=== PATIENT | male | born 1960 | race Caucasian/White ===

== ENCOUNTER → 2017-09-26 | Outpatient (CLI) | payer MEDICARE | LOC: M RAD 15:06 | DX: S43.101A Unspecified dislocation of right acromioclavicular joint, initial encounter (principal); W18.30XA Fall on same level, unspecified, initial encounter; Y92.009 Unspecified place in unspecified non-institutional (private) residence as the place of occurrence of the external cause | CPT/HCPCS: 73221 ==

== ENCOUNTER 2017-11-01 05:33 | Day surgery (SDC) | payer MEDICARE ==
[2017-11-01] MEDS ORDERED: dexameTHASONE 10 MG/1 ML VIAL PRES.FREE (J1100) (05:34)
[2017-11-01] MEDS ORDERED: ROPIvacaine 0.5% 30 ML INJECTION (J2795 PER 1MG) (05:34)
[2017-11-01] MEDS ORDERED: LIDOCAINE 1% MDV 20ML VIAL (05:34)
[2017-11-01] MEDS ORDERED: ePHEDrine SULFATE 25 MG/5 ML(5MG/ML) SYRINGE (05:34)
[2017-11-01] MEDS ORDERED: LR 1,000 ML IV ×3 (05:45→12:00)
[2017-11-01] MEDS ORDERED: MIDAZOLAM INJ 2 MG/2 ML VIAL (J2250) As Ordered (06:57)
[2017-11-01] MEDS ORDERED: fentaNYL 100 MCG/2 ML INJECTION (J3010) As Ordered ×2 (06:57→07:09)
[2017-11-01 07:06] LABS: BEDSIDE GLUCOSE 137 MG/DL (70-105)
[2017-11-01] MEDS ORDERED: PROPOFOL 200 MG/20 ML VIAL As Ordered ×3 (07:08→11:03)
[2017-11-01] MEDS ORDERED: ROCURONIUM BROMIDE 50 MG/5 ML VIAL As Ordered ×2 (07:08→09:17)
[2017-11-01] MEDS ORDERED: LIDOCAINE 2% INJ 100 MG/5 ML SDV (FOR ANES.) As Ordered (07:08)
[2017-11-01] MEDS: MIDAZOLAM INJ 2 MG/2 ML VIAL (J2250) IV (07:20)
[2017-11-01] MEDS: fentaNYL 100 MCG/2 ML INJECTION (J3010) IV (07:20)
[2017-11-01] MEDS ORDERED: PHENYLephrine HCL 500 MCG/5 ML (100MCG/ML) SYRINGE (J2370) As Ordered ×2 (07:58→08:16)
[2017-11-01] MEDS ORDERED: METOCLOPRAMIDE INJ 10MG/2ML VIAL (J2765) As Ordered (07:58)
[2017-11-01] MEDS ORDERED: ePHEDrine SULFATE 25 MG/5 ML(5MG/ML) SYRINGE As Ordered ×2 (07:59→08:24)
[2017-11-01] MEDS ORDERED: NEOSTIGMINE 10 MG/10 ML VIAL (J2710) As Ordered ×2 (08:22→08:25)
[2017-11-01] MEDS ORDERED: ONDANSETRON 4MG/2ML VIAL (J2405) As Ordered (08:23)
[2017-11-01] MEDS ORDERED: GLYCOPYRROLATE INJ 0.2 MG/ML 2 ML VIAL As Ordered (08:23)
[2017-11-01] MEDS ORDERED: PHENYLEPHRINE INJ 10MG/ML VIAL (J2370) As Ordered ×3 (08:37→08:44)
[2017-11-01] MEDS ORDERED: HumaLOG INSULIN (NovoLOG) PER UNIT As Ordered (11:43)
[2017-11-01 11:52] LABS: BEDSIDE GLUCOSE 323 MG/DL (70-105)
[2017-11-01] MEDS ORDERED: ONDANSETRON 4MG/2ML VIAL (J2405) IV (12:00)
[2017-11-01] MEDS ORDERED: fentaNYL 100 MCG/2 ML INJECTION (J3010) IV (12:00)
[2017-11-01] MEDS ORDERED: HYDROmorphone HCL 1 MG/ML SYRINGE (J1170) IV (12:00)
[2017-11-01] MEDS ORDERED: PERCOCET 5MG/325MG TAB PO (12:00)
[2017-11-01] MEDS: HumaLOG INSULIN (NovoLOG) PER UNIT SC ×3 (12:34→14:12)
[2017-11-01] MEDS ORDERED: LR 500 ML IV (12:45)
[2017-11-01 13:32] LABS: BEDSIDE GLUCOSE 362 MG/DL (70-105)
[2017-11-01 14:13] LABS: BEDSIDE GLUCOSE 268 MG/DL (70-105)
[2017-11-01 15:38] LABS: BEDSIDE GLUCOSE 199 MG/DL (70-105)
== END 2017-11-01 15:44 | disposition home or self-care (01) ==
LOC: M SDC 05:33
DX: S43.101A Unspecified dislocation of right acromioclavicular joint, initial encounter (principal); M19.011 Primary osteoarthritis, right shoulder; I10 Essential (primary) hypertension; E10.21 Type 1 diabetes mellitus with diabetic nephropathy; Z79.4 Long term (current) use of insulin; J44.9 Chronic obstructive pulmonary disease, unspecified; F32.9 Major depressive disorder, single episode, unspecified; Z79.899 Other long term (current) drug therapy; Z87.891 Personal history of nicotine dependence; Y93.9 Activity, unspecified; Y92.9 Unspecified place or not applicable
CPT/HCPCS: 23552

== ENCOUNTER → 2020-04-19 | Outpatient (CLI) | payer MEDICARE ==
[~2020-04-19] MED LIST: FLUO10TA30 PO; FLUO20CA20 PO; GABA-843 PO; INSUHUMDS SC; INSULANT SC; LISI10TA4 PO; METO1TAB32 PO; ROSU20TA5 PO; TRAM50TA2 PO; medical marijuana
== END ==
LOC: M LABSMTC 11:15
PROVIDERS: ATTEND Anesthesiology
DX: Z01.812 Encounter for preprocedural laboratory examination (principal); Z20.828 Contact with and (suspected) exposure to other viral communicable diseases
CPT/HCPCS: C9803; U0003

== ENCOUNTER 2020-04-24 11:49 | Day surgery (SDC) | payer MEDICARE ==
[~2020-04-24] VITALS: Ht 175.3 cm; Wt 82.5 kg
[~2020-04-24 11:49] MED LIST changes: +LIDOCAINE 2% 100MG/5ML SDV (FOR ANES.) As Ordered ONE; +NS 1,000 ML IV ONE; +propofoL 200 MG/20 ML VIAL As Ordered ONE
--- NOTE | 2020-04-24 13:34 | ROOR ---
Patient Name: Ceasar Steen Procedure Date: 04/24/2020 1:19 PM Date of : 1960 Age: 59 Room: [facility] Gender: Male Note Status: Finalized Procedure: Upper GI endoscopy Indications: Epigastric abdominal pain, Nausea Providers: Tereso KING MD Referring MD: Ksenia ZAMAN MD Requesting Provider: Medicines: Monitored Anesthesia Care Complications: No immediate complications. Procedure: Pre-Anesthesia Assessment: - The heart rate, respiratory rate, oxygen saturations, blood pressure, adequacy of pulmonary ventilation, and response to care were monitored throughout the procedure. The Endoscope was introduced through the mouth, and advanced to the second part of duodenum. The upper GI endoscopy was accomplished without difficulty. The patient tolerated the procedure well. Findings: The examined esophagus was normal. Scattered mild inflammation characterized by erythema was found in the gastric body and in the gastric antrum. Biopsies were taken with a cold forceps for histology. The exam of the stomach was otherwise normal. The examined duodenum was normal. Impression: - Normal esophagus. - Mild scattered gastritis. Biopsied. - Normal examined duodenum. Recommendation: - Continue present medications. - Telephone endoscopist for pathology results in 2 weeks. - Observe patient's clinical course. - Gastroparesis diet: - Eat smaller, more frequent meals throughout the day. - Low fat diet. - Liquid/soft foods are tolerated better than solid foods. - Low fiber/well cooked vegetables are tolerated better than high fiber/fibrous foods/raw vegetables. - Avoid medications that inhibit gastric/intestinal motility such as narcotic medications. Tereso King MD Tereso KING MD 04/24/2020 1:33:28 PM Electronically signed by Tereso KING MD Number of Addenda: 0 Note Initiated On: 04/24/2020 1:19 PM Estimated Blood Loss: Estimated blood loss: none.
--- NOTE | 2020-04-24 13:48 | ROOR ---
Patient Name: Ceasar Steen Procedure Date: 04/24/2020 1:20 PM Date of : 1960 Age: 59 Room: [facility] Gender: Male Note Status: Finalized Procedure: Colonoscopy Indications: Screening for colorectal malignant neoplasm Providers: Tereso KNIG MD Referring MD: Ksenia ZAMAN MD Requesting Provider: Medicines: Monitored Anesthesia Care Complications: No immediate complications. Procedure: Pre-Anesthesia Assessment: - The heart rate, respiratory rate, oxygen saturations, blood pressure, adequacy of pulmonary ventilation, and response to care were monitored throughout the procedure. The Colonoscope was introduced through the anus and advanced to 5 cm into the ileum. The colonoscopy was performed without difficulty. The patient tolerated the procedure well. The quality of the bowel preparation was good. Findings: The perianal and digital rectal examinations were normal. Small Internal Hemorrhoids. The entire examined colon appeared normal on direct and retroflexion views. Impression: - Small Internal Hemorrhoids. - The entire examined colon is normal on direct and retroflexion views. - The examined portion of the ileum was normal. - No specimens collected. Recommendation: - Repeat colonoscopy in 10 years. - Return to referring physician as previously scheduled. Tereso King MD Tereso KING MD 04/24/2020 1:48:17 PM Electronically signed by Tereso KING MD Number of Addenda: 0 Note Initiated On: 04/24/2020 1:20 PM Estimated Blood Loss: Estimated blood loss: none.
[2020-04-24 14:20] VITALS: BP 109/59
== END 2020-04-24 14:28 | disposition home or self-care (01) ==
LOC: M OPP 11:49
PROVIDERS: ATTEND Internal Medicine Gastroenterology
DX: R19.4 Change in bowel habit (principal); K64.8 Other hemorrhoids; K29.70 Gastritis, unspecified, without bleeding; R13.13 Dysphagia, pharyngeal phase; R11.0 Nausea; K21.9 Gastro-esophageal reflux disease without esophagitis; E11.9 Type 2 diabetes mellitus without complications; Z79.4 Long term (current) use of insulin; Z79.899 Other long term (current) drug therapy

== ENCOUNTER → 2021-08-06 | Outpatient (CLI) | payer MEDICARE ==
[~2021-08-06] MED LIST changes: +FLUO-96 PO; -FLUO20CA20 PO; +GABA-282 PO; -GABA-843 PO; -LIDOCAINE 2% 100MG/5ML SDV (FOR ANES.) As Ordered ONE; +LISI10TA22 PO; -LISI10TA4 PO; -NS 1,000 ML IV ONE; -propofoL 200 MG/20 ML VIAL As Ordered ONE
== END ==
LOC: M RAD 11:08
PROVIDERS: ATTEND Internal Medicine
DX: N40.1 Benign prostatic hyperplasia with lower urinary tract symptoms (principal)

== ENCOUNTER 2021-09-11 12:52 | Emergency (ER) | payer MEDICARE ==
[2021-09-11] MEDS: DEXTROSE 50% 50 ML SYRINGE IV STA ×2 (13:45→13:47)
[2021-09-11] MEDS ORDERED: DEXTROSE 50% 50 ML SYRINGE As Ordered ONE (13:45)
[2021-09-11 14:00] VITALS: BP 133/72
[2021-09-11] MEDS ORDERED: MORPHINE 4 MG/ML 1ML VIAL/SYRINGE (J2270) IV ONE (14:05)
== END 2021-09-11 15:00 | disposition home or self-care (01) ==
LOC: EDBD 12:52 → EDSEX 12:52 → M ED 12:52
DX: S82.042A Displaced comminuted fracture of left patella, initial encounter for closed fracture (principal); W00.0XXA Fall on same level due to ice and snow, initial encounter; Y92.89 Other specified places as the place of occurrence of the external cause; I10 Essential (primary) hypertension; E11.9 Type 2 diabetes mellitus without complications; F33.9 Major depressive disorder, recurrent, unspecified; Z79.899 Other long term (current) drug therapy; Z79.4 Long term (current) use of insulin

== ENCOUNTER → 2021-09-15 | Outpatient (CLI) | payer MEDICARE | LOC: M RAD 14:30 | PROVIDERS: ATTEND Orthopaedic Surgery Hand Surgery | DX: S82.032A Displaced transverse fracture of left patella, initial encounter for closed fracture (principal); X58.XXXA Exposure to other specified factors, initial encounter; Y92.89 Other specified places as the place of occurrence of the external cause; Y93.9 Activity, unspecified; Y99.9 Unspecified external cause status ==

== ENCOUNTER → 2021-09-23 | Outpatient (CLI) | payer MEDICARE ==
[~2021-09-23] MED LIST changes: +ASPI81CH8 PO; +FURO40TA2 PO; +GABA-1171 PO; +HYDR-3363 PO; +METO25TA4 PO
== END ==
LOC: M LABSMTC 09:27
PROVIDERS: ATTEND Anesthesiology
DX: Z01.812 Encounter for preprocedural laboratory examination (principal); Z20.822 Contact with and (suspected) exposure to COVID-19

== ENCOUNTER 2021-09-25 12:27 | Inpatient (IN) | payer MEDICARE ==
[~2021-09-25 12:27] MED LIST changes: -ASPI81CH8 PO; -FURO40TA2 PO; -GABA-1171 PO; -HYDR-3363 PO; -METO25TA4 PO
[2021-09-25 14:25] VITALS: BP 113/68
[2021-09-25 14:31] LABS: HEMATOCRIT 32.7 % (42.0-52.0); HEMOGLOBIN 11.1 g/dl (13.5-17.5); MEAN CORPUSCULAR HEMOGLOBIN 31.2 pg (27.0-33.0); MEAN CORPUSCULAR HGB CONC 33.9 g/dl (32.0-36.5); MEAN CORPUSCULAR VOLUME 91.9 fl (80.0-96.0); PLATELET COUNT, AUTOMATED 392 10^3/uL (150-450); RED BLOOD COUNT 3.56 10^6/uL (4.30-6.10); WHITE BLOOD COUNT 7.6 10^3/uL (4.0-10.0)
[2021-09-25 14:42] LABS: INR 0.95; PARTIAL THROMBOPLASTIN TIME 27.6 SECONDS (25.9-37.0); PROTHROMBIN TIME 13.1 SECONDS (12.7-14.5)
[2021-09-25] MEDS ORDERED: DEXTROSE 50% 50 ML SYRINGE IV PRN (14:55)
[2021-09-25] MEDS ORDERED: GLUCAGON INJ 1MG VIAL SC PRN (14:55)
[2021-09-25] MEDS ORDERED: GLUCOSE 4GM CHEW TABLET PO PRN (14:55)
[2021-09-25 14:56] LABS: ALBUMIN 3.2 GM/DL (3.2-5.2); ALT/SGPT 17 U/L (12-78); BILIRUBIN,TOTAL 0.8 MG/DL (0.2-1.0); BLOOD UREA NITROGEN 15 MG/DL (7-18); CARBON DIOXIDE LEVEL 29 MEQ/L (21-32); CHLORIDE LEVEL 104 MEQ/L (98-107); GLOMERULAR FILTRATION RATE > 60.0 (>49); GLUCOSE, FASTING 122 MG/DL (70-100); SODIUM LEVEL 136 MEQ/L (136-145)
[2021-09-25] MEDS ORDERED: GABA-1171 PO (16:25)
[2021-09-25] MEDS ORDERED: METO25TA4 PO (16:25)
[2021-09-25] MEDS ORDERED: HOME MED LIST COMPLETE! XX SCH (16:30)
[2021-09-25] MEDS: HumaLOG INSULIN (NovoLOG) PER UNIT SC SCH (18:41)
[2021-09-25] MEDS: METOPROLOL TART 25 MG TABLET PO SCH (20:04)
[2021-09-25] MEDS: FLUoxetine 20 MG CAP PO SCH (20:04)
[2021-09-25] MEDS: GABAPENTIN 100 MG CAP PO SCH (20:04)
[2021-09-25] MEDS: ROSUVASTATIN 10 MG TAB (CRESTOR) PO SCH (20:04)
[2021-09-25] MEDS ORDERED: HumaLOG INSULIN (NovoLOG) PER UNIT SC SCH (21:00)
[2021-09-25] MEDS ORDERED: GABAPENTIN 300 MG CAP PO SCH (21:00)
[2021-09-25] MEDS ORDERED: LEVEMIR (INSULIN DETEMIR) 1 UNITS/0.01ML SC SCH (21:00)
[2021-09-25 22:00] VITALS: BP 117/62
[2021-09-26] VITALS (9 sets, daily range): BP systolic 107–141; BP diastolic 57–70
[2021-09-26] MEDS ORDERED: HumaLOG INSULIN (NovoLOG) PER UNIT SC ONE (01:45)
[2021-09-26] MEDS: NS 1,000 ML IV ONE ×2 (02:06→02:22)
[2021-09-26 06:17] LABS: HEMATOCRIT 30.9 % (42.0-52.0); HEMOGLOBIN 10.3 g/dl (13.5-17.5); MEAN CORPUSCULAR HEMOGLOBIN 31.6 pg (27.0-33.0); MEAN CORPUSCULAR HGB CONC 33.3 g/dl (32.0-36.5); MEAN CORPUSCULAR VOLUME 94.8 fl (80.0-96.0); PLATELET COUNT, AUTOMATED 360 10^3/uL (150-450); RED BLOOD COUNT 3.26 10^6/uL (4.30-6.10); WHITE BLOOD COUNT 6.9 10^3/uL (4.0-10.0)
[2021-09-26 06:44] LABS: BLOOD UREA NITROGEN 13 MG/DL (7-18); CALCIUM LEVEL 8.9 MG/DL (8.8-10.2); CARBON DIOXIDE LEVEL 30 MEQ/L (21-32); CHLORIDE LEVEL 110 MEQ/L (98-107); CREATININE FOR GFR 0.82 MG/DL (0.70-1.30); GLOMERULAR FILTRATION RATE > 60.0 (>49); GLUCOSE, FASTING 80 MG/DL (70-100); POTASSIUM SERUM 4.1 MEQ/L (3.5-5.1); SODIUM LEVEL 143 MEQ/L (136-145)
[2021-09-26] MEDS: HumaLOG INSULIN (NovoLOG) PER UNIT SC SCH ×3 (07:30→20:28)
[2021-09-26] MEDS ORDERED: D5W/0.45% SODIUM CHLORIDE 1,000 ML IV SCH (08:00)
[2021-09-26] MEDS ORDERED: FLUoxetine 20 MG CAP PO SCH (09:00)
[2021-09-26] MEDS ORDERED: ceFAZolin 2 GM/D5W 50 ML IV BAG (J0690 PER 500MG) As Ordered ONE ×2 (10:27→15:24)
[2021-09-26] MEDS ORDERED: BUPIVACAINE HCL 0.25% 30ML VIAL As Ordered ONE (10:28)
[2021-09-26] MEDS ORDERED: dexameTHASONE 10MG/1ML VIAL PRES.FREE (J1100 PER 1MG) ONE (11:01)
[2021-09-26] MEDS ORDERED: LIDOCAINE 1% MDV 20ML VIAL ONE (11:01)
[2021-09-26] MEDS ORDERED: ROPIvacaine 0.5% 30ML INJECTION (J2795 PER 1MG) As Ordered ONE (11:10)
[2021-09-26] MEDS ORDERED: NS 1,000 ML IV SCH (11:30)
[2021-09-26] MEDS ORDERED: TRANEXAMIC ACID 100 MG/ML 10ML VIAL As Ordered ONE ×2 (11:37→12:06)
[2021-09-26] MEDS ORDERED: HumaLOG INSULIN (NovoLOG) PER UNIT As Ordered ONE (11:39)
[2021-09-26] MEDS ORDERED: DESFLURANE 240 ML INHALANT As Ordered ONE ×2 (11:59→14:21)
[2021-09-26] MEDS ORDERED: SEVOFLURANE INHAL SOLN 250 ML BTL As Ordered ONE (11:59)
[2021-09-26] MEDS ORDERED: fentaNYL 250 MCG/5 ML INJECTION As Ordered ONE (11:59)
[2021-09-26] MEDS ORDERED: MIDAZOLAM INJ 2MG/2ML VIAL (J2250 PER 1MG) As Ordered ONE (11:59)
[2021-09-26] MEDS ORDERED: ONDANSETRON 4MG/2ML VIAL As Ordered ONE (11:59)
[2021-09-26] MEDS ORDERED: ACETAMINOPHEN 1000MG 100ML IV BTL (OFIRMEV) (J0131 PER 10MG) As Ordered ONE (11:59)
[2021-09-26] MEDS ORDERED: METOCLOPRAMIDE INJ 10MG/2ML VIAL (J2765 PER 1) As Ordered ONE (11:59)
[2021-09-26] MEDS ORDERED: SUGAMMADEX SODIUM 500 MG/5 ML VIAL (BRIDION) As Ordered ONE (11:59)
[2021-09-26] MEDS ORDERED: ROCURONIUM BROMIDE 50 MG/5 ML VIAL As Ordered ONE (11:59)
[2021-09-26] MEDS ORDERED: LIDOCAINE 2% 100MG/5ML SDV (FOR ANES.) As Ordered ONE (11:59)
[2021-09-26] MEDS ORDERED: propofoL 200 MG/20 ML VIAL As Ordered ONE (11:59)
[2021-09-26] MEDS ORDERED: dexameTHASONE 4 MG/ML 1ML VIAL (J1100 PER 1MG) As Ordered ONE (11:59)
[2021-09-26] MEDS ORDERED: HumaLOG INSULIN (NovoLOG) PER UNIT SC SCH (12:00)
[2021-09-26] MEDS ORDERED: ALBUTEROL 6.7GM INHALER **FOR ANES. CART/OMNICELL ONLY As Ordered ONE (12:00)
[2021-09-26] MEDS ORDERED: ePHEDrine SULFATE 25 MG/5 ML(5MG/ML) SYRINGE As Ordered ONE ×2 (12:15→15:00)
[2021-09-26] MEDS ORDERED: fentaNYL 100 MCG/2 ML INJECTION As Ordered ONE (14:45)
[2021-09-26] MEDS ORDERED: PHENYLephrine 500MCG 5ML (100MCG/ML) SYRINGE As Ordered ONE (15:03)
[2021-09-26] MEDS ORDERED: VANCOMYCIN 500MG/10ML VIAL As Ordered ONE (15:20)
[2021-09-26] MEDS ORDERED: fentaNYL 100 MCG/2 ML INJECTION IV PRN (16:55)
[2021-09-26] MEDS ORDERED: LR 1,000 ML IV SCH (16:55)
[2021-09-26] MEDS ORDERED: ONDANSETRON 4MG/2ML VIAL IV PRN (16:55)
[2021-09-26] MEDS ORDERED: oxyCODONE 5MG TAB PO PRN (16:55)
[2021-09-26] MEDS: LR 1,000 ML IV SCH (18:01)
[2021-09-26] MEDS: GABAPENTIN 100 MG CAP PO SCH (20:16)
[2021-09-26] MEDS: FLUoxetine 20 MG CAP PO SCH (20:16)
[2021-09-26] MEDS: ROSUVASTATIN 10 MG TAB (CRESTOR) PO SCH (20:16)
[2021-09-26] MEDS: METOPROLOL TART 25 MG TABLET PO SCH (20:17)
[2021-09-26] MEDS: LEVEMIR (INSULIN DETEMIR) 1 UNITS/0.01ML SC SCH (20:21)
[2021-09-26] MEDS ORDERED: GABAPENTIN 100 MG CAP PO ONE (22:15)
[2021-09-27 02:00] VITALS: BP 128/71
[2021-09-27] MEDS ORDERED: HumaLOG INSULIN (NovoLOG) PER UNIT SC ONE ×4 (04:45→20:25)
[2021-09-27 06:00] VITALS: BP 128/69
[2021-09-27 06:52] LABS: HEMATOCRIT 27.5 % (42.0-52.0); HEMOGLOBIN 9.3 g/dl (13.5-17.5); MEAN CORPUSCULAR HEMOGLOBIN 31.4 pg (27.0-33.0); MEAN CORPUSCULAR HGB CONC 33.8 g/dl (32.0-36.5); MEAN CORPUSCULAR VOLUME 92.9 fl (80.0-96.0); PLATELET COUNT, AUTOMATED 360 10^3/uL (150-450); RED BLOOD COUNT 2.96 10^6/uL (4.30-6.10); WHITE BLOOD COUNT 16.2 10^3/uL (4.0-10.0)
[2021-09-27 07:22] LABS: BLOOD UREA NITROGEN 13 MG/DL (7-18); CALCIUM LEVEL 8.9 MG/DL (8.8-10.2); CARBON DIOXIDE LEVEL 28 MEQ/L (21-32); CHLORIDE LEVEL 106 MEQ/L (98-107); CREATININE FOR GFR 0.99 MG/DL (0.70-1.30); GLOMERULAR FILTRATION RATE > 60.0 (>49); GLUCOSE, FASTING 302 MG/DL (70-100); MAGNESIUM LEVEL 1.8 MG/DL (1.8-2.4); POTASSIUM SERUM 4.6 MEQ/L (3.5-5.1); SODIUM LEVEL 139 MEQ/L (136-145)
[2021-09-27] MEDS: ASPIRIN 81 MG CHEW TABLET PO SCH (08:12)
[2021-09-27] MEDS: HumaLOG INSULIN (NovoLOG) PER UNIT SC SCH ×4 (08:13→20:42)
[2021-09-27] MEDS: LEVEMIR (INSULIN DETEMIR) 1 UNITS/0.01ML SC SCH ×2 (08:15→20:54)
[2021-09-27 10:00] VITALS: BP 127/62
[2021-09-27] MEDS ORDERED: K-PHOS ORIGINAL (POT.ACID PHOSPHATE) 500MG TAB PO ONE (11:50)
[2021-09-27] MEDS: LR 1,000 ML IV SCH (12:55)
[2021-09-27 13:00] LABS: HEMOGLOBIN A1c 7.7 %
[2021-09-27 14:00] VITALS: BP 159/73
[2021-09-27 18:00] VITALS: BP_SYST 154; BP_DIAS 0; BP_DIAS 70
[2021-09-27] MEDS ORDERED: ONDANSETRON 4 MG TAB PO ONE (18:30)
[2021-09-27] MEDS ORDERED: ONDANSETRON 4MG/2ML VIAL IV PRN (19:55)
[2021-09-27 20:04] LABS: APPEARANCE, URINE CLEAR (CLEAR); BACTERIA, URINE AUTO NEGATIVE (NEGATIVE); BILIRUBIN, URINE AUTO NEGATIVE (NEGATIVE); BLOOD, URINE BLOOD NEGATIVE (NEGATIVE); COLOR, URINE YELLOW (YELLOW); GLUCOSE, URINE (UA) AUTO NEGATIVE (NEGATIVE); KETONE, URINE AUTO 1+ mg/dL (NEGATIVE); LEUKOCYTE ESTERASE, URINE AUTO NEGATIVE (NEGATIVE); MUCUS, URINE SMALL (NEGATIVE); NITRITE, URINE AUTO NEGATIVE (NEGATIVE); PROTEIN, URINE AUTO NEGATIVE (NEGATIVE); RBC, URINE AUTO 1 /HPF (0-3); SPECIFIC GRAVITY URINE AUTO 1.013 (1.002-1.035); SQUAMOUS EPITHELIAL CELL UR AU 0 /HPF (0-6); WBC, URINE AUTO 0 /HPF (0-3)
[2021-09-27] MEDS: HEPARIN SOD (PORCINE) 5000UNITS/ML 1ML VIAL/SYRINGE SQ SCH (20:54)
[2021-09-27] MEDS: ROSUVASTATIN 10 MG TAB (CRESTOR) PO SCH (21:00)
[2021-09-27] MEDS ORDERED: lisinopriL 5 MG TAB PO SCH (21:00)
[2021-09-27] MEDS ORDERED: LEVEMIR (INSULIN DETEMIR) 1 UNITS/0.01ML SC SCH (21:00)
[2021-09-27] MEDS: METOPROLOL TART 25 MG TABLET PO SCH (21:00)
[2021-09-27] MEDS: FLUoxetine 20 MG CAP PO SCH (21:00)
[2021-09-27] MEDS: GABAPENTIN 100 MG CAP PO SCH (21:00)
[2021-09-27 22:00] VITALS: BP 125/59
[2021-09-27] MEDS ORDERED: PROMETHAZINE INJ 25 MG/ML VIAL (J2550) IV PRN (23:55)
[2021-09-28] MEDS: LR 1,000 ML IV SCH ×2 (00:24→11:39)
[2021-09-28] MEDS ORDERED: HumaLOG INSULIN (NovoLOG) PER UNIT SC ONE (00:45)
[2021-09-28] MEDS: HEPARIN SOD (PORCINE) 5000UNITS/ML 1ML VIAL/SYRINGE SQ SCH ×2 (05:00→14:37)
[2021-09-28 06:00] VITALS: BP 131/69
[2021-09-28 06:36] LABS: HEMATOCRIT 28.3 % (42.0-52.0); HEMOGLOBIN 9.5 g/dl (13.5-17.5); MEAN CORPUSCULAR HEMOGLOBIN 31.3 pg (27.0-33.0); MEAN CORPUSCULAR HGB CONC 33.6 g/dl (32.0-36.5); MEAN CORPUSCULAR VOLUME 93.1 fl (80.0-96.0); PLATELET COUNT, AUTOMATED 358 10^3/uL (150-450); RED BLOOD COUNT 3.04 10^6/uL (4.30-6.10); WHITE BLOOD COUNT 10.5 10^3/uL (4.0-10.0)
[2021-09-28 07:15] LABS: BLOOD UREA NITROGEN 10 MG/DL (7-18); CALCIUM LEVEL 8.5 MG/DL (8.8-10.2); CARBON DIOXIDE LEVEL 28 MEQ/L (21-32); CHLORIDE LEVEL 106 MEQ/L (98-107); CREATININE FOR GFR 0.84 MG/DL (0.70-1.30); GLOMERULAR FILTRATION RATE > 60.0 (>49); GLUCOSE, FASTING 201 MG/DL (70-100); MAGNESIUM LEVEL 1.8 MG/DL (1.8-2.4); PHOSPHORUS LEVEL 3.2 MG/DL (2.5-4.9); POTASSIUM SERUM 3.9 MEQ/L (3.5-5.1); SODIUM LEVEL 141 MEQ/L (136-145)
[2021-09-28] MEDS: LEVEMIR (INSULIN DETEMIR) 1 UNITS/0.01ML SC SCH (08:23)
[2021-09-28] MEDS: ASPIRIN 81 MG CHEW TABLET PO SCH (08:24)
[2021-09-28] MEDS: HumaLOG INSULIN (NovoLOG) PER UNIT SC SCH ×3 (08:24→17:07)
[2021-09-28] MEDS ORDERED: ASPI81CH8 PO (13:31)
[2021-09-28 14:00] VITALS: BP 145/72
== END 2021-09-28 17:30 | DRG 517 ==
LOC: M MSPAV 13:59
PROVIDERS: ADMIT General Practice; ATTEND Internal Medicine
PROC: 0QSF04Z Reposition Left Patella with Internal Fixation Device, Open Approach (ICD-10-PCS; principal; 2021-09-26 11:00)
DX: S82.002A Unspecified fracture of left patella, initial encounter for closed fracture (principal); F41.9 Anxiety disorder, unspecified; E78.5 Hyperlipidemia, unspecified; F32.A Depression, unspecified; I10 Essential (primary) hypertension; E10.9 Type 1 diabetes mellitus without complications; W00.0XXA Fall on same level due to ice and snow, initial encounter; Y92.009 Unspecified place in unspecified non-institutional (private) residence as the place of occurrence of the external cause; Z91.14 Patient's other noncompliance with medication regimen; Z79.82 Long term (current) use of aspirin; Z79.899 Other long term (current) drug therapy; Z79.4 Long term (current) use of insulin

== ENCOUNTER 2021-09-28 12:30 | Inpatient (IN) | payer MEDICARE ==
[~2021-09-28 12:30] MED LIST changes: +GABA-1171 PO; +METO25TA4 PO
[2021-09-28] MEDS ORDERED: ASPI81CH8 PO (13:31)
[2021-09-28] MEDS ORDERED: BISACODYL 10 MG SUPP PR PRN (16:50)
[2021-09-28] MEDS ORDERED: DEXTROSE 50% 50 ML SYRINGE IV PRN (16:50)
[2021-09-28] MEDS ORDERED: GLUCOSE 4GM CHEW TABLET PO PRN (16:50)
[2021-09-28] MEDS ORDERED: GLUCAGON INJ 1MG VIAL SC PRN (16:50)
[2021-09-28] MEDS ORDERED: ONDANSETRON 4 MG ORAL DISINTEGRATING TAB PO PRN (16:50)
[2021-09-28] MEDS: HumaLOG INSULIN (NovoLOG) PER UNIT SC SCH (17:30)
[2021-09-28 17:35] VITALS: BP 171/86
[2021-09-28 20:20] VITALS: BP 141/82
[2021-09-28 20:30] VITALS: BP 157/72
[2021-09-28] MEDS: SENNA 8.6 MG TAB (SENOKOT) PO SCH (21:00)
[2021-09-28] MEDS: ACETAMINOPHEN 500 MG TAB PO SCH (21:00)
[2021-09-28] MEDS: REMEDY PHYTOPLEX Z-GUARD PASTE 113GM TUBE (FROM STOREROOM PRODUCT) TOP SCH (21:00)
[2021-09-28] MEDS ORDERED: HumaLOG INSULIN (NovoLOG) PER UNIT SC SCH (21:00)
[2021-09-28] MEDS: DOCUSATE SODIUM 100MG CAPSULE PO SCH (21:00)
[2021-09-28] MEDS: ROSUVASTATIN 10 MG TAB (CRESTOR) PO SCH (21:05)
[2021-09-28] MEDS: GABAPENTIN 100 MG CAP PO SCH (21:05)
[2021-09-28] MEDS: METOPROLOL TART 25 MG TABLET PO SCH (21:06)
[2021-09-28] MEDS: FLUoxetine 20 MG CAP PO SCH (21:06)
[2021-09-28] MEDS: lisinopriL 5 MG TAB PO SCH (21:06)
[2021-09-28] MEDS: LEVEMIR (INSULIN DETEMIR) 1 UNITS/0.01ML SC SCH (21:07)
[2021-09-28] MEDS: HEPARIN SOD (PORCINE) 5000UNITS/ML 1ML VIAL/SYRINGE SC SCH (21:07)
[2021-09-28] MEDS ORDERED: HumaLOG INSULIN (NovoLOG) PER UNIT SC ONE (21:20)
[2021-09-29 06:13] VITALS: BP 141/76
[2021-09-29 06:38] LABS: BASO # 0.1 10^3/uL (0.0-0.2); EOS # 0.1 10^3/uL (0.0-0.5); EOS % 1.2 % (0.0-3.0); HEMATOCRIT 29.7 % (42.0-52.0); HEMOGLOBIN 9.9 g/dl (13.5-17.5); LYMPH # 1.8 10^3/uL (1.5-5.0); LYMPH % 21.5 % (24.0-44.0); MEAN CORPUSCULAR HEMOGLOBIN 30.9 pg (27.0-33.0); MEAN CORPUSCULAR HGB CONC 33.3 g/dl (32.0-36.5); MEAN CORPUSCULAR VOLUME 92.8 fl (80.0-96.0); MONO # 0.8 10^3/uL (0.0-0.8); MONO % 9.3 % (2.0-8.0); NEUTROPHILS # 5.5 10^3/uL (1.5-8.5); NEUTROPHILS % 66.6 % (36.0-66.0); PLATELET COUNT, AUTOMATED 339 10^3/uL (150-450); WHITE BLOOD COUNT 8.3 10^3/uL (4.0-10.0)
[2021-09-29 07:03] LABS: ALBUMIN 2.8 GM/DL (3.2-5.2); ALT/SGPT 15 U/L (12-78); BILIRUBIN,TOTAL 0.6 MG/DL (0.2-1.0); BLOOD UREA NITROGEN 9 MG/DL (7-18); CALCIUM LEVEL 9.1 MG/DL (8.8-10.2); CARBON DIOXIDE LEVEL 32 MEQ/L (21-32); CHLORIDE LEVEL 107 MEQ/L (98-107); CREATININE FOR GFR 0.83 MG/DL (0.70-1.30); GLOMERULAR FILTRATION RATE > 60.0 (>49); GLUCOSE, FASTING 128 MG/DL (70-100); POTASSIUM SERUM 3.9 MEQ/L (3.5-5.1); SODIUM LEVEL 142 MEQ/L (136-145)
[2021-09-29] MEDS: LEVEMIR (INSULIN DETEMIR) 1 UNITS/0.01ML SC SCH ×2 (08:43→21:50)
[2021-09-29] MEDS: HumaLOG INSULIN (NovoLOG) PER UNIT SC SCH ×4 (08:43→21:51)
[2021-09-29] MEDS: HEPARIN SOD (PORCINE) 5000UNITS/ML 1ML VIAL/SYRINGE SC SCH ×2 (08:44→21:50)
[2021-09-29] MEDS: ASPIRIN 81MG ENTERIC TABLET PO SCH (08:44)
[2021-09-29] MEDS: DOCUSATE SODIUM 100MG CAPSULE PO SCH ×2 (08:44→21:00)
[2021-09-29] MEDS: GABAPENTIN 100 MG CAP PO SCH ×2 (08:44→21:49)
[2021-09-29] MEDS: PANTOPRAZOLE 40MG TAB (PROTONIX) PO SCH (08:44)
[2021-09-29] MEDS: REMEDY PHYTOPLEX Z-GUARD PASTE 113GM TUBE (FROM STOREROOM PRODUCT) TOP SCH ×3 (08:45→21:00)
[2021-09-29] MEDS: ACETAMINOPHEN 500 MG TAB PO SCH ×3 (08:45→21:48)
[2021-09-29] MEDS ORDERED: hydrOXYzine 25 MG TAB PO ONE (11:00)
[2021-09-29 15:00] VITALS: BP 108/58
[2021-09-29 19:56] VITALS: BP 139/78
[2021-09-29] MEDS: SENNA 8.6 MG TAB (SENOKOT) PO SCH (21:00)
[2021-09-29] MEDS: lisinopriL 5 MG TAB PO SCH (21:48)
[2021-09-29] MEDS: ROSUVASTATIN 10 MG TAB (CRESTOR) PO SCH (21:48)
[2021-09-29] MEDS: FLUoxetine 20 MG CAP PO SCH (21:49)
[2021-09-29] MEDS: METOPROLOL TART 25 MG TABLET PO SCH (21:49)
[2021-09-29] MEDS: hydrOXYzine 25 MG TAB PO SCH (21:49)
[2021-09-30] MEDS ORDERED: UNRESOLVED CLARIFICATION ENTRY XX SCH (00:01)
[2021-09-30 05:47] VITALS: BP 136/76
[2021-09-30] MEDS: REMEDY PHYTOPLEX Z-GUARD PASTE 113GM TUBE (FROM STOREROOM PRODUCT) TOP SCH ×3 (09:00→19:49)
[2021-09-30] MEDS: HumaLOG INSULIN (NovoLOG) PER UNIT SC SCH ×4 (09:22→23:16)
[2021-09-30] MEDS: DOCUSATE SODIUM 100MG CAPSULE PO SCH ×2 (09:23→20:18)
[2021-09-30] MEDS: HEPARIN SOD (PORCINE) 5000UNITS/ML 1ML VIAL/SYRINGE SC SCH ×2 (09:23→20:18)
[2021-09-30] MEDS: PANTOPRAZOLE 40MG TAB (PROTONIX) PO SCH (09:23)
[2021-09-30] MEDS: ASPIRIN 81MG ENTERIC TABLET PO SCH (09:23)
[2021-09-30] MEDS: ACETAMINOPHEN 500 MG TAB PO SCH ×3 (09:24→20:20)
[2021-09-30] MEDS: hydrOXYzine 25 MG TAB PO SCH ×3 (09:25→20:19)
[2021-09-30 12:55] LABS: BASO % 0.5 % (0.0-1.0); EOS # 0.2 10^3/uL (0.0-0.5); EOS % 2.1 % (0.0-3.0); HEMATOCRIT 31.3 % (42.0-52.0); HEMOGLOBIN 10.4 g/dl (13.5-17.5); LYMPH # 1.5 10^3/uL (1.5-5.0); MEAN CORPUSCULAR HEMOGLOBIN 30.8 pg (27.0-33.0); MEAN CORPUSCULAR HGB CONC 33.2 g/dl (32.0-36.5); MEAN CORPUSCULAR VOLUME 92.6 fl (80.0-96.0); MONO # 0.6 10^3/uL (0.0-0.8); MONO % 7.3 % (2.0-8.0); NEUTROPHILS # 6.1 10^3/uL (1.5-8.5); NEUTROPHILS % 71.7 % (36.0-66.0); PLATELET COUNT, AUTOMATED 343 10^3/uL (150-450); RED BLOOD COUNT 3.38 10^6/uL (4.30-6.10); WHITE BLOOD COUNT 8.4 10^3/uL (4.0-10.0)
[2021-09-30 13:23] LABS: BLOOD UREA NITROGEN 20 MG/DL (7-18); CALCIUM LEVEL 8.9 MG/DL (8.8-10.2); CARBON DIOXIDE LEVEL 30 MEQ/L (21-32); CHLORIDE LEVEL 104 MEQ/L (98-107); GLOMERULAR FILTRATION RATE > 60.0 (>49); GLUCOSE, FASTING 143 MG/DL (70-100); POTASSIUM SERUM 3.5 MEQ/L (3.5-5.1); SODIUM LEVEL 137 MEQ/L (136-145)
[2021-09-30 14:00] VITALS: BP 128/58
[2021-09-30] MEDS: SENNA 8.6 MG TAB (SENOKOT) PO SCH (19:49)
[2021-09-30] MEDS ORDERED: NS 1,000 ML IV ONE (19:50)
[2021-09-30 20:15] VITALS: BP 128/65
[2021-09-30] MEDS: LEVEMIR (INSULIN DETEMIR) 1 UNITS/0.01ML SC SCH (20:17)
[2021-09-30] MEDS: FLUoxetine 20 MG CAP PO SCH (20:18)
[2021-09-30] MEDS: GABAPENTIN 100 MG CAP PO SCH (20:18)
[2021-09-30] MEDS: ROSUVASTATIN 10 MG TAB (CRESTOR) PO SCH (20:18)
[2021-09-30] MEDS: METOPROLOL TART 25 MG TABLET PO SCH (20:19)
[2021-09-30] MEDS: lisinopriL 5 MG TAB PO SCH (20:19)
[2021-10-01 06:00] VITALS: BP 122/68
[2021-10-01 07:26] LABS: BLOOD UREA NITROGEN 14 MG/DL (7-18); CALCIUM LEVEL 8.3 MG/DL (8.8-10.2); CARBON DIOXIDE LEVEL 27 MEQ/L (21-32); CHLORIDE LEVEL 110 MEQ/L (98-107); CREATININE FOR GFR 0.76 MG/DL (0.70-1.30); GLOMERULAR FILTRATION RATE > 60.0 (>49); GLUCOSE, FASTING 125 MG/DL (70-100); SODIUM LEVEL 143 MEQ/L (136-145)
[2021-10-01] MEDS: hydrOXYzine 25 MG TAB PO SCH ×3 (08:49→21:16)
[2021-10-01] MEDS: PANTOPRAZOLE 40MG TAB (PROTONIX) PO SCH (08:49)
[2021-10-01] MEDS: ASPIRIN 81MG ENTERIC TABLET PO SCH (08:49)
[2021-10-01] MEDS: HEPARIN SOD (PORCINE) 5000UNITS/ML 1ML VIAL/SYRINGE SC SCH ×2 (08:50→21:14)
[2021-10-01] MEDS: HumaLOG INSULIN (NovoLOG) PER UNIT SC SCH ×4 (08:50→21:13)
[2021-10-01] MEDS: DOCUSATE SODIUM 100MG CAPSULE PO SCH ×2 (08:50→21:00)
[2021-10-01] MEDS: REMEDY PHYTOPLEX Z-GUARD PASTE 113GM TUBE (FROM STOREROOM PRODUCT) TOP SCH ×3 (08:51→21:00)
[2021-10-01] MEDS: ACETAMINOPHEN 500 MG TAB PO SCH ×3 (08:51→21:15)
[2021-10-01 14:00] VITALS: BP 138/71
[2021-10-01 20:31] VITALS: BP 138/71
[2021-10-01] MEDS: SENNA 8.6 MG TAB (SENOKOT) PO SCH (21:00)
[2021-10-01] MEDS: LEVEMIR (INSULIN DETEMIR) 1 UNITS/0.01ML SC SCH (21:13)
[2021-10-01] MEDS: METOPROLOL TART 25 MG TABLET PO SCH (21:14)
[2021-10-01] MEDS: ROSUVASTATIN 10 MG TAB (CRESTOR) PO SCH (21:14)
[2021-10-01 21:15] VITALS: BP 138/71
[2021-10-01] MEDS: lisinopriL 5 MG TAB PO SCH (21:15)
[2021-10-01] MEDS: FLUoxetine 20 MG CAP PO SCH (21:15)
[2021-10-01] MEDS: GABAPENTIN 100 MG CAP PO SCH (21:15)
[2021-10-02 05:58] VITALS: BP 129/61
[2021-10-02 06:22] LABS: BASO # 0.1 10^3/uL (0.0-0.2); BASO % 1.5 % (0.0-1.0); EOS # 0.3 10^3/uL (0.0-0.5); EOS % 6.6 % (0.0-3.0); HEMATOCRIT 30.5 % (42.0-52.0); HEMOGLOBIN 10.2 g/dl (13.5-17.5); LYMPH # 1.4 10^3/uL (1.5-5.0); LYMPH % 31.3 % (24.0-44.0); MEAN CORPUSCULAR HEMOGLOBIN 30.7 pg (27.0-33.0); MEAN CORPUSCULAR HGB CONC 33.4 g/dl (32.0-36.5); MEAN CORPUSCULAR VOLUME 91.9 fl (80.0-96.0); MONO # 0.4 10^3/uL (0.0-0.8); MONO % 9.3 % (2.0-8.0); NEUTROPHILS # 2.3 10^3/uL (1.5-8.5); NEUTROPHILS % 50.4 % (36.0-66.0); PLATELET COUNT, AUTOMATED 341 10^3/uL (150-450); RED BLOOD COUNT 3.32 10^6/uL (4.30-6.10); WHITE BLOOD COUNT 4.5 10^3/uL (4.0-10.0)
[2021-10-02 06:46] LABS: BLOOD UREA NITROGEN 11 MG/DL (7-18); CALCIUM LEVEL 8.9 MG/DL (8.8-10.2); CARBON DIOXIDE LEVEL 28 MEQ/L (21-32); CHLORIDE LEVEL 110 MEQ/L (98-107); CREATININE FOR GFR 0.75 MG/DL (0.70-1.30); GLOMERULAR FILTRATION RATE > 60.0 (>49); GLUCOSE, FASTING 82 MG/DL (70-100); POTASSIUM SERUM 3.7 MEQ/L (3.5-5.1); SODIUM LEVEL 143 MEQ/L (136-145)
[2021-10-02] MEDS: ACETAMINOPHEN 500 MG TAB PO SCH (08:47)
[2021-10-02] MEDS: HumaLOG INSULIN (NovoLOG) PER UNIT SC SCH ×2 (08:47→13:00)
[2021-10-02] MEDS: ASPIRIN 81MG ENTERIC TABLET PO SCH (08:47)
[2021-10-02] MEDS: HEPARIN SOD (PORCINE) 5000UNITS/ML 1ML VIAL/SYRINGE SC SCH (08:47)
[2021-10-02] MEDS: PANTOPRAZOLE 40MG TAB (PROTONIX) PO SCH (08:47)
[2021-10-02] MEDS: REMEDY PHYTOPLEX Z-GUARD PASTE 113GM TUBE (FROM STOREROOM PRODUCT) TOP SCH (08:47)
[2021-10-02] MEDS: hydrOXYzine 25 MG TAB PO SCH (08:47)
[2021-10-02] MEDS: DOCUSATE SODIUM 100MG CAPSULE PO SCH (09:00)
[2021-10-02] MEDS ORDERED: FUROSEMIDE 40 MG TAB PO SCH (09:00)
[2021-10-02] MEDS ORDERED: hydrOXYzine 25 MG TAB PO ONE (13:30)
[2021-10-02] MEDS ORDERED: FURO40TA2 PO (15:07)
[2021-10-02] MEDS ORDERED: ASPI81CH8 PO (15:07)
[2021-10-02] MEDS ORDERED: METO25TA4 PO (15:07)
[2021-10-02] MEDS ORDERED: LISI10TA22 PO (15:07)
[2021-10-02] MEDS ORDERED: HYDR-3363 PO (15:07)
[2021-10-02] MEDS ORDERED: ROSU20TA5 PO (15:07)
[2021-10-02] MEDS ORDERED: GABA-1171 PO (15:07)
[2021-10-02] MEDS ORDERED: FLUO-96 PO (15:07)
== END 2021-10-02 15:10 | disposition left against medical advice (07) | DRG 561 ==
LOC: M PM&R 17:35
PROVIDERS: ADMIT Physical Medicine & Rehabilitation; ATTEND Physical Medicine & Rehabilitation
DX: S82.402D Unspecified fracture of shaft of left fibula, subsequent encounter for closed fracture with routine healing (principal); E10.42 Type 1 diabetes mellitus with diabetic polyneuropathy; I10 Essential (primary) hypertension; E78.5 Hyperlipidemia, unspecified; F41.9 Anxiety disorder, unspecified; F32.A Depression, unspecified; D64.9 Anemia, unspecified; Z74.09 Other reduced mobility; Z74.1 Need for assistance with personal care; Z79.4 Long term (current) use of insulin; Z79.82 Long term (current) use of aspirin; Z79.899 Other long term (current) drug therapy

== ENCOUNTER → 2021-10-08 | Outpatient (CLI) | payer MEDICARE ==
[~2021-10-08] MED LIST changes: +ASPI81CH8 PO; +FURO40TA2 PO; +HYDR-3363 PO
== END ==
LOC: M SOG 11:34
PROVIDERS: ATTEND Student in an Organized Health Care Education/Training Program
DX: Z48.89 Encounter for other specified surgical aftercare (principal)

== ENCOUNTER → 2021-10-27 | Outpatient (CLI) | payer MEDICARE | LOC: M SOG 11:55 | PROVIDERS: ATTEND Orthopaedic Surgery | DX: S82.042D Displaced comminuted fracture of left patella, subsequent encounter for closed fracture with routine healing (principal) ==

== ENCOUNTER → 2021-12-10 | Outpatient (CLI) | payer MEDICARE | LOC: M SOG 10:56 | PROVIDERS: ATTEND Orthopaedic Surgery | DX: Z47.89 Encounter for other orthopedic aftercare (principal); M25.562 Pain in left knee ==

== ENCOUNTER → 2022-03-03 | Outpatient (CLI) | payer MEDICARE | LOC: M SOG 07:58 | PROVIDERS: ATTEND Orthopaedic Surgery | DX: M25.562 Pain in left knee (principal) ==

== ENCOUNTER → 2022-06-09 | Outpatient (CLI) | payer MEDICARE ==
[~2022-06-09] MED LIST changes: +FLUO20CA22 PO; +METO1TAB87 PO; +TAMS1CAP17 PO
== END ==
LOC: M LABSMTC 09:35
PROVIDERS: ATTEND Anesthesiology
DX: Z01.812 Encounter for preprocedural laboratory examination (principal); Z11.52 Encounter for screening for COVID-19

== ENCOUNTER 2022-06-14 07:20 | Day surgery (SDC) | payer MEDICARE ==
[~2022-06-14] VITALS: Ht 177.8 cm; Wt 80.3 kg
[~2022-06-14 07:20] MED LIST changes: +BSS IRRIG/VANCO(10MG)/TOBRA(5MG)/EPINEPH(1:1000-0.5CC)500ML BAG-ORONLY IR ONE; +BSS with VANC/TOB/EPI for EYE CASES IR ONE; +CEFUROXIME 1MG/0.1ML INTRACAMERAL INJ As Ordered ONE; +CYCLOPENTOLATE 1% OPHTH SOLN 2 ML BTL OS SCH; +LIDOCAINE 1% 1ML PF SYRINGE (OR EYE CASES) As Ordered ONE; +LIDOCAINE 3.5 % 1ML OPHTH TOPICAL GEL OU ONE; +MIDAZOLAM INJ 2MG/2ML VIAL (J2250 PER 1MG) As Ordered ONE; +OFLOXACIN 0.3 % (OCUFLOX) OPTH SOL 5ML OS ONE; +PHENYLEPHRINE 10% OPHTH SOL 5ML OS PRN; +PHENYLEPHRINE 2.5% OPHTH SOL 2ML OS SCH; +TROPICAMIDE 1% OPHTH SOLN 15ML OS SCH
[2022-06-14] MEDS ORDERED: INSULIN LISPRO (NovoLOG) PER UNIT SC PRN (08:15)
[2022-06-14 08:52] VITALS: BP 115/68
== END 2022-06-14 09:05 | disposition home or self-care (01) ==
LOC: M SDC 07:20
PROVIDERS: ATTEND Ophthalmology
DX: H25.12 Age-related nuclear cataract, left eye (principal); E10.40 Type 1 diabetes mellitus with diabetic neuropathy, unspecified; Z79.4 Long term (current) use of insulin; K21.9 Gastro-esophageal reflux disease without esophagitis; Z87.891 Personal history of nicotine dependence; F41.9 Anxiety disorder, unspecified; F32.A Depression, unspecified; Z79.82 Long term (current) use of aspirin; Z79.899 Other long term (current) drug therapy
CPT/HCPCS: 66984; 92015; J0697; J1815; J2250; V2632